=== PATIENT | female | born 1960 | race Caucasian/White ===

== ENCOUNTER 2017-07-11 06:04 | Day surgery (SDC) | payer BC ==
[~2017-07-11] VITALS: Ht 167.6 cm; Wt 148.8 kg
[2017-07-11] MEDS ORDERED: MIDAZOLAM HCL 5 MG/5 ML VIAL IVP ONE (08:00)
[2017-07-11] MEDS ORDERED: PROPOFOL 200MG/ 20ML VIAL (DIPRIVAN) IV ONE (08:00)
[2017-07-11] MEDS ORDERED: SEVOFLURANE 15 MIN GAS INH ONE (08:00)
[2017-07-11] MEDS ORDERED: KETOROLAC TROMETHAMINE 30 MG VIAL IVP ONE (08:00)
[2017-07-11] MEDS ORDERED: ROCURONIUM BROMIDE 10 MG/ML (ZEMURON) IV ONE (08:00)
[2017-07-11] MEDS ORDERED: fentaNYL CITRATE 250 MCG/5 ML AMP IV ONE (08:00)
[2017-07-11] MEDS ORDERED: LR 1,000 ML IV SCH (08:38)
[2017-07-11] MEDS ORDERED: MORPHINE 4 MG/ML INJ. SYRINGE IVP PRN ×3 (08:45)
[2017-07-11] MEDS ORDERED: METOCLOPRAMIDE HCL 10 MG/2 ML VIAL IVP PRN (08:45)
[2017-07-11] MEDS ORDERED: ONDANSETRON HCL 4 MG/2 ML VIAL IVP PRN (09:15)
[2017-07-11] MEDS ORDERED: OXYCODONE/ACETAMINOPHEN 5-325 TABLET PO PRN ×2 (09:15)
[2017-07-11] MEDS ORDERED: IBUPROFEN 800 MG TABLET PO PRN (09:15)
[2017-07-11] MEDS ORDERED: MORPHINE 4 MG/ML INJ. SYRINGE ONE (09:21)
[2017-07-11 10:14] VITALS: BP_SYST 138
== END 2017-07-11 11:30 | disposition home or self-care (01) ==
LOC: SDS 06:04 → SMU 06:04 → SDS 11:30
PROVIDERS: ATTEND Obstetrics & Gynecology
DX: N84.0 Polyp of corpus uteri (principal); D25.9 Leiomyoma of uterus, unspecified; I10 Essential (primary) hypertension; M79.7 Fibromyalgia; K21.9 Gastro-esophageal reflux disease without esophagitis; E03.9 Hypothyroidism, unspecified; M54.5 Low back pain; L93.0 Discoid lupus erythematosus; D48.5 Neoplasm of uncertain behavior of skin; E55.9 Vitamin D deficiency, unspecified; Z68.43 Body mass index [BMI] 50.0-59.9, adult; Z88.8 Allergy status to other drugs, medicaments and biological substances; Z90.49 Acquired absence of other specified parts of digestive tract; Z98.890 Other specified postprocedural states; Z79.899 Other long term (current) drug therapy; E66.01 Morbid (severe) obesity due to excess calories; D64.9 Anemia, unspecified; G62.9 Polyneuropathy, unspecified; M19.90 Unspecified osteoarthritis, unspecified site
CPT/HCPCS: 36415; 58558; 86886; 86900; 86901; 88305; J1885; J2250; J2270; J2704; J3010; J7120